=== PATIENT | female | born 1995 | race Caucasian/White ===

== ENCOUNTER 2016-09-20 11:54 | Emergency (ER) | payer SELFPAY ==
[~2016-09-20] VITALS: Ht 165.1 cm; Wt 79.4 kg
[~2016-09-20 11:54] MED LIST: ACET325T9 PO; ASPI1TAB2 PO; ASPI325T4 PO; CEPH-264 PO; CEPH500T PO; DIPH25CA58 PO; FEXO180T81 PO; HYDR-971 PO; ONDA4TAB10 SL
[2016-09-20 11:59] VITALS: BP 123/71
[2016-09-20 12:53] LABS: BILIRUBIN,URINE NEGATIVE (NEG); GLUCOSE,URINE NEGATIVE (NEG); NITRITE,URINE NEGATIVE (NEG); PROTEIN,URINE NEGATIVE (NEG-TRACE); UROBILINOGEN,URINE 0.2 mg/dL (0.2 mg/dL)
[2016-09-20 13:05] LABS: BACTERIA,URINE FEW /HPF (0-FEW); SQUAMOUS EPITHELIAL CELL,UR FEW /LPF; WBC,URINE OCC /HPF (0-4)
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
[2016-09-20] MEDS ORDERED: METR500T PO (13:59)
== END 2016-09-20 14:28 | disposition home or self-care (01) ==
LOC: ER 11:54
DX: N93.8 Other specified abnormal uterine and vaginal bleeding (principal); N76.0 Acute vaginitis; J45.909 Unspecified asthma, uncomplicated; Z88.8 Allergy status to other drugs, medicaments and biological substances; Z96.22 Myringotomy tube(s) status
CPT/HCPCS: 81001; 81025; 87491; 87591; 99284; Q0111

== ENCOUNTER 2016-10-13 19:21 | Emergency (ER) | payer SELFPAY ==
[~2016-10-13] VITALS: Ht 162.6 cm; Wt 83.9 kg
[~2016-10-13 19:21] MED LIST changes: +METR500T PO
[2016-10-13 19:27] VITALS: BP 110/61
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
--- NOTE | 2016-10-14 08:22 | RAD ---
Indication pain. No history of trauma. AP oblique and lateral views of the right foot were obtained. Bony abnormality is seen
== END 2016-10-13 20:00 | disposition home or self-care (01) ==
LOC: ER 19:21
DX: M79.671 Pain in right foot (principal); J45.909 Unspecified asthma, uncomplicated; Z88.8 Allergy status to other drugs, medicaments and biological substances
CPT/HCPCS: 73630; 99284-25

== ENCOUNTER 2016-11-23 16:10 | Emergency (ER) | payer SELFPAY ==
[~2016-11-23] VITALS: Ht 167.6 cm; Wt 83.9 kg
[2016-11-23 16:59] VITALS: BP 117/59
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
[2016-11-23 17:26] LABS: BILIRUBIN,URINE NEGATIVE (NEG); GLUCOSE,URINE NEGATIVE (NEG); NITRITE,URINE NEGATIVE (NEG); PH,URINE 7.5; PROTEIN,URINE NEGATIVE (NEG-TRACE); UROBILINOGEN,URINE 0.2 mg/dL (0.2 mg/dL)
[2016-11-23 17:47] LABS: BACTERIA,URINE FEW /HPF (0-FEW); RBC,URINE 0 /HPF (0-2); SQUAMOUS EPITHELIAL CELL,UR MANY /LPF; WBC,URINE RARE /HPF (0-4)
== END 2016-11-23 17:29 | disposition other institution (70) ==
LOC: ER 16:10
DX: B07.0 Plantar wart (principal); R30.0 Dysuria; J45.909 Unspecified asthma, uncomplicated; Z88.8 Allergy status to other drugs, medicaments and biological substances
CPT/HCPCS: 81001; 81025; 84703; 87086; 99284

== ENCOUNTER 2016-12-14 07:37 | Emergency (ER) | payer SELFPAY ==
[~2016-12-14] VITALS: Ht 162.6 cm; Wt 81.6 kg
[2016-12-14 07:50] VITALS: BP 122/61
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
[2016-12-14] MEDS ORDERED: SUCRALFATE 1 GM/10 ML ORAL.SUSP. PO ONE (08:15)
[2016-12-14 08:35] LABS: BILIRUBIN,URINE NEGATIVE (NEG); GLUCOSE,URINE NEGATIVE (NEG); NITRITE,URINE NEGATIVE (NEG); PROTEIN,URINE NEGATIVE (NEG-TRACE); UROBILINOGEN,URINE 0.2 mg/dL (0.2 mg/dL)
--- NOTE | 2016-12-14 08:40 | RAD ---
Right upper quadrant abdominal ultrasound, 12/14/2016: History: Upper abdominal pain and nausea The gallbladder is within normal limits in size. There is no sonographic evidence of cholelithiasis. The gallbladder timmons are not thickened. The common hepatic duct measures 4.9 mm. No intrahepatic or ductal dilatation is seen. The visualized portions of the liver, pancreas and right kidney are unremarkable. IMPRESSION: No significant abnormality is detected.
[2016-12-14 08:44] LABS: BACTERIA,URINE FEW /HPF (0-FEW); RBC,URINE 0 /HPF (0-2); SQUAMOUS EPITHELIAL CELL,UR MOD /LPF; WBC,URINE OCC /HPF (0-4)
[2016-12-14] MEDS ORDERED: ONDA4TAB10 SL (09:25)
== END 2016-12-14 09:32 | disposition home or self-care (01) ==
LOC: ER 07:37
DX: R10.11 Right upper quadrant pain (principal); R10.13 Epigastric pain; R11.2 Nausea with vomiting, unspecified; J45.909 Unspecified asthma, uncomplicated; Z88.8 Allergy status to other drugs, medicaments and biological substances
CPT/HCPCS: 76705; 81001; 81025; 84703; 99285-25

== ENCOUNTER 2017-03-14 13:00 | Emergency (ER) | payer SELFPAY ==
[~2017-03-14] VITALS: Ht 167.6 cm; Wt 88.5 kg
[~2017-03-14 13:00] MED LIST changes: -ASPI325T4 PO; +ASPI325T8 PO
[2017-03-14 13:20] VITALS: BP 158/106
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
[2017-03-14 13:41] LABS: BILIRUBIN,URINE NEGATIVE (NEG); GLUCOSE,URINE NEGATIVE (NEG); NITRITE,URINE NEGATIVE (NEG); PROTEIN,URINE NEGATIVE (NEG-TRACE); UROBILINOGEN,URINE 0.2 mg/dL (0.2 mg/dL)
[2017-03-14 13:53] LABS: BACTERIA,URINE MOD /HPF (0-FEW); RBC,URINE 0 /HPF (0-2); SQUAMOUS EPITHELIAL CELL,UR MANY /LPF
== END 2017-03-14 15:40 | disposition home or self-care (01) ==
LOC: ER 13:00
DX: Z34.91 Encounter for supervision of normal pregnancy, unspecified, first trimester (principal); R10.9 Unspecified abdominal pain; R35.0 Frequency of micturition; J45.909 Unspecified asthma, uncomplicated; F12.10 Cannabis abuse, uncomplicated
CPT/HCPCS: 36415; 81001; 81025; 84702; 99284

== ENCOUNTER 2017-04-22 08:14 | Emergency (ER) | payer OTHER ==
[~2017-04-22] VITALS: Ht 167.6 cm; Wt 88.5 kg
[~2017-04-22 08:14] MED LIST changes: +ASPI-621 PO; -ASPI1TAB2 PO
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
[2017-04-22 08:45] LABS: BILIRUBIN,URINE NEGATIVE (NEG); GLUCOSE,URINE NEGATIVE (NEG); NITRITE,URINE NEGATIVE (NEG); PH,URINE 7.5; PROTEIN,URINE NEGATIVE (NEG-TRACE)
[2017-04-22 08:54] LABS: BACTERIA,URINE FEW /HPF (0-FEW); SQUAMOUS EPITHELIAL CELL,UR FEW /LPF
[2017-04-22 08:55] LABS: RBC,URINE OCC /HPF (0-2)
[2017-04-22 09:24] LABS: BASO % 1 % (0-3); EOS % 3 % (0-3); HEMOGLOBIN 13.3 g/dL (12.0-15.5); LYMPH # 1.4 x10^3/uL (1.0-4.8); LYMPH % 24 % (24-48); MEAN CORPUSCULAR HEMOGLOBIN 30 pg (25-35); MEAN CORPUSCULAR HGB CONC 35 g/dL (31-37); MEAN CORPUSCULAR VOLUME 86 fL (79-100); MONO % 7 % (0-9); NEUT % 66 % (31-73); PLATELET COUNT 200 x10^3/uL (140-400); RED BLOOD COUNT 4.43 x10^6/uL (3.50-5.40); RED CELL DISTRIBUTION WIDTH 13.4 % (11.5-14.5); WHITE BLOOD COUNT 5.8 x10^3/uL (4.0-11.0)
[2017-04-22 09:31] LABS: CALCIUM 8.7 mg/dL (8.5-10.1); CREATININE 0.5 mg/dL (0.6-1.0); GFR 155.7; POTASSIUM 3.4 mmol/L (3.5-5.1)
[2017-04-22 09:35] LABS: ALBUMIN 3.7 g/dL (3.4-5.0); ALBUMIN/GLOBULIN RATIO 1.1 (1.0-1.7); TOTAL BILIRUBIN 0.6 mg/dL (0.2-1.0)
[2017-04-22 09:37] LABS: NEG OBC SER NEG; POS OBC SER POS
--- NOTE | 2017-04-22 09:54 | RAD ---
Obstetrical ultrasound, 04/22/2017: History: , abdominal pain The uterus is enlarged and contains a single gestational sac. The gestational sac contains a pole demonstrating a crown-rump length of 2.7 cm compatible with a gestational age of 9-10 weeks, yielding a sonographic EDC of 11/21/2017. Normal activity and heart motion were seen. The heart rate was 169 bpm. No subchorionic hemorrhage is identified. There is a small area of myometrial thickening present adjacent to the gestational sac superiorly. This process is relatively isoechoic relative to the remainder of the myometrium. An isoechoic fibroid measuring approximately 3 cm is suspected. A uterine contraction is less likely. The ovaries are unremarkable. No adnexal mass is seen. No free fluid is evident in the pelvis. IMPRESSION: 1. Single viable intrauterine fetus of 9-10 weeks gestational age. 2. Myometrial thickening in the fundal region suggesting a small uterine fibroid.
[2017-04-22] MEDS ORDERED: ONDA4TAB10 SL (10:14)
[2017-04-22 10:17] VITALS: BP 157/84
== END 2017-04-22 10:25 | disposition home or self-care (01) ==
LOC: ER 08:14
DX: O34.11 Maternal care for benign tumor of corpus uteri, first trimester (principal); Z3A.09 9 weeks gestation of pregnancy; O99.511 Diseases of the respiratory system complicating pregnancy, first trimester; J45.909 Unspecified asthma, uncomplicated; Z88.8 Allergy status to other drugs, medicaments and biological substances
CPT/HCPCS: 36415; 76801; 80053; 81001; 81025; 84702; 84703; 85025; 86901; 87086; 99285-25

== ENCOUNTER 2017-06-10 11:43 | Emergency (ER) | payer OTHER ==
[2017-06-10] MEDS ORDERED: IV NORMAL SALINE 1000ML BAG 1,000 ML IV SCH (12:10)
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
--- NOTE | 2017-06-10 13:37 | RAD ---
EXAM: Obstetric ultrasound. HISTORY: Pelvic pain . Nausea/vomiting. COMPARISON: None. FINDINGS: Sonographic evaluation of the pelvis and fetus was performed transabdominally. There is a single fetus in vertex presentation. Estimated gestational age based on measurements is 17 weeks 2 days. heart rate is 149 bpm. Estimated weight is 197 g. The placenta is posterior. Amniotic fluid index is at the lower limits of normal at 6.6 cm. The cervix is not well seen. IMPRESSION: 1. Single fetus in vertex presentation. Estimated gestational age 17 weeks 2 days. heart rate 149 bpm. 2. Amniotic fluid index at the lower limits of normal at 6.6 cm. Ongoing follow-up is recommended.
[2017-06-10 13:40] LABS: BASO % 1 % (0-3); EOS % 1 % (0-3); HEMATOCRIT 37.3 % (36.0-47.0); HEMOGLOBIN 12.8 g/dL (12.0-15.5); LYMPH # 1.4 x10^3/uL (1.0-4.8); LYMPH % 17 % (24-48); MEAN CORPUSCULAR HEMOGLOBIN 30 pg (25-35); MEAN CORPUSCULAR HGB CONC 34 g/dL (31-37); MEAN CORPUSCULAR VOLUME 87 fL (79-100); MONO % 5 % (0-9); NEUT % 76 % (31-73); PLATELET COUNT 187 x10^3/uL (140-400); RED BLOOD COUNT 4.31 x10^6/uL (3.50-5.40); RED CELL DISTRIBUTION WIDTH 13.2 % (11.5-14.5); WHITE BLOOD COUNT 8.1 x10^3/uL (4.0-11.0)
[2017-06-10] MEDS ORDERED: ONDANSETRON PF 4 MG/2 ML VIAL. IV ONE (13:45)
[2017-06-10 13:52] LABS: CALCIUM 8.7 mg/dL (8.5-10.1); CREATININE 0.5 mg/dL (0.6-1.0); GFR 155.7; POTASSIUM 3.9 mmol/L (3.5-5.1)
[2017-06-10 13:58] LABS: ALBUMIN 3.3 g/dL (3.4-5.0); TOTAL BILIRUBIN 0.4 mg/dL (0.2-1.0); TOTAL PROTEIN 6.7 g/dL (6.4-8.2)
[2017-06-10 14:21] LABS: BILIRUBIN,URINE NEGATIVE (NEG); GLUCOSE,URINE NEGATIVE (NEG); NITRITE,URINE NEGATIVE (NEG); PROTEIN,URINE NEGATIVE (NEG-TRACE); UROBILINOGEN,URINE 0.2 mg/dL (0.2 mg/dL)
[2017-06-10] MEDS ORDERED: ONDA4TAB7 PO (14:34)
[2017-06-10 14:38] LABS: BACTERIA,URINE 0 /HPF (0-FEW); RBC,URINE 0 /HPF (0-2); SQUAMOUS EPITHELIAL CELL,UR MOD /LPF
[2017-06-10 15:00] VITALS: BP 107/60
[2017-06-10] MEDS ORDERED: NITR100C62 PO (15:10)
== END 2017-06-10 15:17 | disposition home or self-care (01) ==
LOC: ER 11:43
DX: O26.892 Other specified pregnancy related conditions, second trimester (principal); R10.9 Unspecified abdominal pain; O21.0 Mild hyperemesis gravidarum; O99.512 Diseases of the respiratory system complicating pregnancy, second trimester; J45.909 Unspecified asthma, uncomplicated; O99.322 Drug use complicating pregnancy, second trimester; F12.10 Cannabis abuse, uncomplicated; Z3A.17 17 weeks gestation of pregnancy; Z88.8 Allergy status to other drugs, medicaments and biological substances
CPT/HCPCS: 36415; 76805; 76810; 80053; 81001; 81025; 84702; 85025; 86900; 86901; 87086; 96361; 96374; 99285; J2405; J7030

== ENCOUNTER 2017-10-22 08:14 | Observation (INO) | payer OTHER ==
[2017-10-22 09:35] LABS: BASO # 0.1 x10^3/uL (0.0-0.2); BASO % 1 % (0-3); EOS # 0.2 x10^3/uL (0.0-0.7); EOS % 2 % (0-3); HEMATOCRIT 34.6 % (36.0-47.0); HEMOGLOBIN 11.8 g/dL (12.0-15.5); LYMPH # 0.6 x10^3/uL (1.0-4.8); LYMPH % 6 % (24-48); MEAN CORPUSCULAR HEMOGLOBIN 29 pg (25-35); MEAN CORPUSCULAR HGB CONC 34 g/dL (31-37); MEAN CORPUSCULAR VOLUME 84 fL (79-100); MONO # 0.6 x10^3/uL (0.0-1.1); MONO % 6 % (0-9); NEUT # 9.1 x10^3uL (1.8-7.7); NEUT % 86 % (31-73); PLATELET COUNT 162 x10^3/uL (140-400); RED BLOOD COUNT 4.12 x10^6/uL (3.50-5.40); RED CELL DISTRIBUTION WIDTH 13.6 % (11.5-14.5); WHITE BLOOD COUNT 10.5 x10^3/uL (4.0-11.0)
[2017-10-22] MEDS: IV RINGERS,LACTATED 1000ML 1,000 ML IV (09:36)
[2017-10-22 09:42] LABS: ADD MAN DIFF? YES
[2017-10-22 09:46] LABS: ALBUMIN 2.6 g/dL (3.4-5.0); ALBUMIN/GLOBULIN RATIO 0.7 (1.0-1.7); ALK PHOS 97 U/L (46-116); ALT (SGPT) 14 U/L (14-59); ANION GAP 11 (6-14); AST (SGOT) 12 U/L (15-37); BLOOD UREA NITROGEN 5 mg/dL (7-20); BUN/CREATININE RATIO 10 (6-20); CALCIUM 8.3 mg/dL (8.5-10.1); CARBON DIOXIDE 22 mmol/L (21-32); CHLORIDE 104 mmol/L (98-107); CREATININE 0.5 mg/dL (0.6-1.0); GFR 155.7; GLUCOSE 128 mg/dL (70-99); POTASSIUM 3.7 mmol/L (3.5-5.1); SODIUM 137 mmol/L (136-145); TOTAL BILIRUBIN 0.3 mg/dL (0.2-1.0); TOTAL PROTEIN 6.5 g/dL (6.4-8.2)
[2017-10-22 10:00] LABS: INFLUENZA A PATIENT NEGATIVE (NEGATIVE); INFLUENZA B PATIENT NEGATIVE (NEGATIVE)
[2017-10-22 10:01] LABS: OBC FLU VALID
[2017-10-22 11:25] LABS: % BANDS 1 % (0-9); % EOS 2 % (0-5); % LYMPHS 6 % (24-48); % MONOS 7 % (0-10); % SEGS 84 % (35-66); PLT ESTIMATE ADEQUATE (ADEQUATE)
== END 2017-10-22 10:52 | disposition home or self-care (01) ==
LOC: 3 SO LND 08:14
DX: O26.893 Other specified pregnancy related conditions, third trimester (principal); R06.02 Shortness of breath; Z3A.35 35 weeks gestation of pregnancy
CPT/HCPCS: 36415; 80053; 85007; 85025; 87804; 87804-59; 96361; 96365; G0378; G0379; J0690; J7120

== ENCOUNTER 2018-09-10 09:57 | Emergency (ER) | payer SELFPAY ==
[~2018-09-10] VITALS: Ht 162.6 cm; Wt 108.9 kg
[~2018-09-10 09:57] MED LIST changes: +HYDR-3164 PO; -HYDR-971 PO; +NITR100C62 PO; +ONDA4TAB7 PO
[2018-09-10 10:00] VITALS: BP 113/70
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
--- NOTE | 2018-09-10 10:40 | RAD ---
EXAM: PA, oblique and lateral views of the left hand DATE: 09/10/2018 10:09 AM INDICATION: PT STATES FELL ON ICE 2 WEEKS AGO, PAIN TO 5TH METACARPAL PHALANGEAL JT. COMPARISON: No Prior FINDINGS: No evidence of acute fracture or dislocation. Joint spaces are preserved without significant degenerative/proliferative change. Moderate soft tissue swelling overlying the dorsal/ulnar aspect of the hand. Moderate index and long finger soft tissue swelling. IMPRESSION: Soft tissue swelling without evidence for acute fracture or dislocation. No definite periosteal reaction/callus formation. Electronically signed by: Vitor Arce MD (09/10/2018 10:37 AM) [id number]
== END 2018-09-10 11:25 | disposition home or self-care (01) ==
LOC: ER 09:57
DX: S60.052A Contusion of left little finger without damage to nail, initial encounter (principal); J45.909 Unspecified asthma, uncomplicated; Z98.890 Other specified postprocedural states; Z88.8 Allergy status to other drugs, medicaments and biological substances; W00.0XXA Fall on same level due to ice and snow, initial encounter; Y93.89 Activity, other specified; Y92.89 Other specified places as the place of occurrence of the external cause; Y99.8 Other external cause status
CPT/HCPCS: 73130; 99283; 99284

== ENCOUNTER 2018-11-05 07:19 | Emergency (ER) | payer SELFPAY ==
[~2018-11-05] VITALS: Ht 162.6 cm; Wt 109.8 kg
[2018-11-05 07:35] VITALS: BP 121/67
[2018-11-05] MEDS ORDERED: PRED20TA PO (07:48)
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
[2018-11-05] MEDS ORDERED: DEXAMETHASONE 4 MG TABLET PO ONE (08:00)
== END 2018-11-05 07:59 | disposition home or self-care (01) ==
LOC: ER 07:19
DX: L30.8 Other specified dermatitis (principal); J45.909 Unspecified asthma, uncomplicated; F17.210 Nicotine dependence, cigarettes, uncomplicated; Z98.890 Other specified postprocedural states; Z98.51 Tubal ligation status; Z96.22 Myringotomy tube(s) status; Z88.8 Allergy status to other drugs, medicaments and biological substances
CPT/HCPCS: 99283; J8540